=== PATIENT | female | born 1985 | race Caucasian/White ===

== ENCOUNTER 2016-09-26 09:43 | Outpatient (CLI) | payer OTHER ==
[2016-09-26] VITALS (10 sets, daily range): BP systolic 118–140; BP diastolic 62–81; PULSE 69–88
[~2016-09-26] VITALS: Ht 182.9 cm; Wt 120.0 kg
[~2016-09-26 09:43] MED LIST: HCTZ 25MG TAB25 MG PO
[2016-09-26] MEDS ORDERED: NEURONTIN300 MG/CAP PO (10:03)
[2016-09-26] MEDS ORDERED: TOPAMAX200 MG PO (10:04)
[2016-09-26] MEDS ORDERED: TOPAMAX 100MG100 M1 PO (10:04)
[2016-09-26 14:17] LABS: CEREBROSPINAL TUBE #4; CSF APPEARANCE CLEAR; CSF COLOR COLORLESS
[2016-09-29 08:41] LABS: CSF,IGG 1.9 mg/dL (<=8.1)
[2016-09-29 08:44] LABS: IGG/ALBUMIN SERUM 0.22 (<=0.40)
[2016-09-29 08:57] LABS: ALBUMIN CSF 15.7 mg/dL (<=27.0); CSF IGG/ALBUMIN 0.12 (<=0.21); CSF SYNTHESIS RATE 0.66 mg/24 h (<=12); CSF-IGG INDEX 0.55 (<=0.85)
== END 2016-09-26 13:18 | disposition home or self-care (01) ==
LOC: COL.RAD 09:43
PROVIDERS: Psychiatry & Neurology Neurology
DX: R20.0 Anesthesia of skin (principal); M54.2 Cervicalgia; M54.6 Pain in thoracic spine; G43.109 Migraine with aura, not intractable, without status migrainosus; R27.9 Unspecified lack of coordination; H53.8 Other visual disturbances; H53.10 Unspecified subjective visual disturbances

== ENCOUNTER → 2020-10-15 | Outpatient (CLI) | payer OTHER ==
[~2020-10-15] MED LIST changes: +NEURONTIN300 MG/CAP PO; +TOPAMAX 100MG100 M1 PO; +TOPAMAX200 MG PO
== END ==
LOC: COL.RAD 06:46
DX: C78.6 Secondary malignant neoplasm of retroperitoneum and peritoneum (principal); R19.00 Intra-abdominal and pelvic swelling, mass and lump, unspecified site; R16.1 Splenomegaly, not elsewhere classified
CPT/HCPCS: Q9967

== ENCOUNTER → 2020-10-22 | Outpatient (CLI) | payer OTHER ==
[~2020-10-22] VITALS: Ht 182.9 cm; Wt 107.1 kg
[2020-10-22] VITALS (19 sets, daily range): BP systolic 92–136; BP diastolic 48–85; PULSE 99–122
--- NOTE | 2020-10-22 11:00 | NUR ---
PT TAKEN TO CT AND PLACED ON TABLE. MONITORING EQUIPMENT PLACED
== END ==
LOC: COL.RAD 10:00
DX: R19.09 Other intra-abdominal and pelvic swelling, mass and lump (principal); R59.0 Localized enlarged lymph nodes
CPT/HCPCS: 32108

== ENCOUNTER 2020-10-27 04:53 | Emergency (ER) | payer OTHER ==
[~2020-10-27] VITALS: Ht 182.9 cm; Wt 109.1 kg
[2020-10-27 04:59] VITALS: TEMP 98.9
[2020-10-27 05:22] LABS: MEAN CELL VOLUME 77 fl (80.0-100.0); MEAN CORPUSCULAR HGB CONC 32 g/dl (33.0-37.0); MEAN PLATELET VOLUME 10.8 fl (7.4-10.4); PLATELET COUNT 273 K/mm3 (130-400); RED BLOOD COUNT 3.72 M/mm3 (4.10-5.30); REDCELL DISTRIBUTION WIDTH-CV 14.7 % (11.5-14.5)
[2020-10-27 05:23] LABS: HEMATOCRIT 28.7 % (37.0-47.0); HEMOGLOBIN 9.2 g/dl (12.5-16.0); MEAN CORPUSCULAR HEMOGLOBIN 25 pg (27.0-31.0)
[2020-10-27 05:30] LABS: ALBUMIN 3.3 gm/dL (3.5-5.0); BILIRUBIN,TOTAL 1.7 mg/dL (0.0-1.0); CALCIUM 9.9 mg/dL (8.4-10.2); CREATININE, serum 0.84 (0.52-1.25); POTASSIUM 3.7 mmol/L (3.4-5.0); TOTAL PROTEIN 6.6 gm/dL (6.4-8.2)
[2020-10-27 05:40] LABS: BAND 2 % (0-10); EOSINOPHIL 1 % (0-4); LYMPHOCYTE 12 % (20.0-51.0); NEUTROPHILS 78 % (42.0-75.2); NUCLEATED RED BLOOD CELL 1 (0-6); PLATELET ESTIMATE NORMAL (NORMAL)
[2020-10-27 05:41] LABS: HYPOCHROMIA 1+; MICROCYTOSIS 1+; OVALOCYTES 1+
[2020-10-27 07:08] VITALS: BP 131/76; PULSE 103
== END 2020-10-27 07:08 | disposition home or self-care (01) ==
LOC: COL.ER 04:53
PROVIDERS: Personal Emergency Response Attendant
DX: R10.12 Left upper quadrant pain (principal); R00.0 Tachycardia, unspecified; D73.9 Disease of spleen, unspecified; Z90.49 Acquired absence of other specified parts of digestive tract; Z32.02 Encounter for pregnancy test, result negative
CPT/HCPCS: J7030; Q9967

== ENCOUNTER 2020-11-09 08:16 | Emergency (ER) | payer OTHER ==
[~2020-11-09] VITALS: Ht 182.9 cm; Wt 104.5 kg
[2020-11-09 08:29] VITALS: TEMP 98.7
[2020-11-09 10:42] VITALS: BP 138/72; PULSE 90
== END 2020-11-09 10:42 | disposition home or self-care (01) ==
LOC: COL.ER 08:16
PROVIDERS: Emergency Medicine
DX: R51.9 Headache, unspecified (principal); R11.2 Nausea with vomiting, unspecified; Z85.72 Personal history of non-Hodgkin lymphomas
CPT/HCPCS: J0780; J1200; J1885; J7120

== ENCOUNTER → 2020-11-17 | Outpatient (CLI) | payer OTHER | LOC: ZCOL.LAB 09:19 | DX: R93.89 Abnormal findings on diagnostic imaging of other specified body structures (principal); R19.09 Other intra-abdominal and pelvic swelling, mass and lump; Z20.822 Contact with and (suspected) exposure to COVID-19 ==

== ENCOUNTER → 2020-12-13 | Outpatient (CLI) | payer OTHER | LOC: ZCOL.LAB 10:58 | DX: Z20.822 Contact with and (suspected) exposure to COVID-19 (principal) ==

== ENCOUNTER → 2021-01-03 | Outpatient (CLI) | payer OTHER | LOC: ZCOL.LAB 09:37 | DX: Z20.822 Contact with and (suspected) exposure to COVID-19 (principal) ==

== ENCOUNTER → 2021-01-24 | Outpatient (CLI) | payer OTHER | LOC: ZCOL.LAB 12:42 | DX: Z20.822 Contact with and (suspected) exposure to COVID-19 (principal) ==

== ENCOUNTER → 2021-02-14 | Outpatient (CLI) | payer OTHER | LOC: ZCOL.LAB 13:36 | DX: Z20.822 Contact with and (suspected) exposure to COVID-19 (principal) ==

== ENCOUNTER → 2021-03-07 | Outpatient (CLI) | payer OTHER | LOC: ZCOL.LAB 08:23 | DX: Z20.822 Contact with and (suspected) exposure to COVID-19 (principal) ==

== ENCOUNTER → 2021-06-28 | Outpatient (CLI) | payer OTHER | LOC: COL.RAD 08:35 | DX: R10.12 Left upper quadrant pain (principal); R16.1 Splenomegaly, not elsewhere classified ==